=== PATIENT | male | born 2000 | race Caucasian/White ===

== ENCOUNTER 2020-05-22 09:40 | Outpatient (CLI) | payer OTHER, SELFPAY ==
--- NOTE | ~2020-05-22 | US_ITS ---
US abdomen complete EXAMINATION: US Abdomen Complete INDICATION: Abdomen pain PROCEDURE: Realtime High Resolution abdomen ultrasound. COMPARISON: No prior studies for comparison FINDINGS: Gallbladder within normal limits. No gallstones, pericholecystic fluid, gallbladder wall t hickening or biliary dilatation. Common bile duct measures 3.5 mm. Liver echotexture within normal limits without focal mass. Pancreas within normal limits. Pancreati c tail is obscured by bowel gas. Spleen is unremarkeable. Renal echotexture is within normal limits bilaterally without hydronephrosis, contour deforming mass or renal stone. Right kidney measures 10.7 cm. Left kidney measures 12 cm. Visualized aspects of the aorta and IVC are within normal limits. Portal vein is patent. No sonograph ic Valdivia's sign indicated by the technologist. IMPRESSION: 1: Normal abdominal ultrasound. Reviewed, dictated and finalized at location A.
[2020-05-22 09:56] LABS: Basophils Percent Auto 0.7 % (0.2-1.2); Eosinophils Absolute Auto 0.1 K/mm3 (0-0.3); Eosinophils Percent Auto 3.2 % (0-4.4); Hemoglobin 14.6 g/dL (14.0-18.0); Immature Granulocyte Absolute 0.01 K/mm3 (0.00-0.031); Immature Granulocyte Percent A 0.2 % (0-0.5); Lymphocytes Absolute Auto 1.49 K/mm3 (0.9-3.2); Lymphocytes Percent Auto 36.3 % (18.3-44.2); Mean Corpuscular Volume 88.3 fl (80-100); Mean Platelet Volume 8.7 fl (7.4-10.4); Monocytes Absolute Auto 0.4 K/mm3 (0.1-0.6); Monocytes Percent Auto 10.7 % (2.6-8.5); Neutrophils Percent Auto 48.9 % (45.5-73.1); Platelet Count Result 233 k/mm3 (150-375); Red Blood Count 4.87 M/mm3 (4.6-6.20); Red Cell Distribution Width 11.9 % (11.5-14.5); White Blood Count 4.1 K/mm3 (4.5-10.0)
[2020-05-22 10:13] LABS: Alanine Aminotransferase 17 U/L (4-50); Albumin Level 4.5 g/dL (3.7-5.6); Alkaline Phosphatase 47 U/L (58-237); Anion Gap 4 mmol/L (8-16); Aspartate Amino Transferase 21 U/L (17-59); Bilirubin,Total 0.8 mg/dL (0.2-1.3); Blood Urea Nitrogen 10 mg/dL (8-21); Calcium 9.8 mg/dL (8.9-10.7); Carbon Dioxide 32 mmol/L (22-30); Chloride 104 mmol/L (98-107); Cholesterol 116 mg/dL (0-200); Estimated Glomerular Filt Rate > 60; Glucose 87 mg/dL (75-110); HDL Direct 48 mg/dL; Sodium 140 mmol/L (134-143); Triglycerides 105 mg/dL (<150)
[2020-05-22 10:24] LABS: LDL Cholesterol Direct 54 mg/dL
[2020-05-22 10:41] LABS: Free T4 Free Thyroxine 1.25 ng/mL (0.78-2.19)
[2020-05-22 10:43] LABS: Thyroid Stimulating Hormone 0.049 uIU/mL (0.465-4.680)
[2020-05-25 05:54] LABS: Triiodothyronine T3 Free 3.6 pg/mL (3.0-4.7)
[2020-05-27 08:27] LABS: Gliadin AB, IgG 5 Units (<20); Reticulin IgA Negative (Negative); TTG IGA AB 1 U/mL (<4)
== END 2020-05-22 09:41 | disposition home or self-care (01) ==
PROVIDERS: PCP Internal Medicine; Visit Provider Nurse Practitioner
DX: Z13.220 Encounter for screening for lipoid disorders (principal); R10.9 Unspecified abdominal pain; E07.9 Disorder of thyroid, unspecified; Z51.81 Encounter for therapeutic drug level monitoring; Z79.899 Other long term (current) drug therapy
CPT/HCPCS: 36415; 76700; 80053; 80061; 83516; 84439; 84443; 84481; 85025; 86255

== ENCOUNTER 2021-12-02 08:05 | Outpatient (CLI) | payer OTHER, SELFPAY ==
[2021-12-02 19:11] LABS: Hematocrit 40.7 % (42.0-52.0); Hemoglobin 13.6 g/dL (14.0-18.0); Mean Corpuscular HGB Conc 33.4 g/dl (32-36); Mean Corpuscular Hemoglobin 30.8 pg (26-34); Mean Corpuscular Volume 92.3 fl (80-100); Mean Platelet Volume 9.4 fl (7.4-10.4); Platelet Count Result 237 k/mm3 (150-375); Red Blood Count 4.41 M/mm3 (4.6-6.20); Red Cell Distribution Width 12.4 % (11.5-14.5); White Blood Count 3.5 K/mm3 (4.5-10.0)
[2021-12-02 19:26] LABS: Alanine Aminotransferase 20 U/L (6-50); Albumin Level 4.7 g/dL (3.5-5.1); Alkaline Phosphatase 39 U/L (38-126); Anion Gap 11 mmol/L (8-16); Aspartate Amino Transferase 37 U/L (17-59); Bilirubin,Total 0.8 mg/dL (0.2-1.3); Blood Urea Nitrogen 16 mg/dL (9-20); Calcium 9.5 mg/dL (8.4-10.2); Carbon Dioxide 29 mmol/L (22-30); Chloride 102 mmol/L (98-107); Estimated Glomerular Filt Rate > 60; Glucose 71 mg/dL (65-110); Potassium 4.1 mmol/L (3.4-5.0); Sodium 142 mmol/L (137-145)
[2021-12-02 22:13] LABS: Thyroid Stimulating Hormone 0.476 uIU/mL (0.465-4.680)
== END 2021-12-02 08:06 | disposition home or self-care (01) ==
LOC: ANHGOSHLAB 08:09
PROVIDERS: PCP Internal Medicine; Visit Provider Internal Medicine
DX: D72.819 Decreased white blood cell count, unspecified (principal); E03.9 Hypothyroidism, unspecified; Z13.228 Encounter for screening for other metabolic disorders
CPT/HCPCS: 36415; 80053; 84443; 85027

== ENCOUNTER 2021-12-30 08:36 | Outpatient (CLI) | payer OTHER, SELFPAY ==
[2021-12-30 18:43] LABS: Basophils Percent Auto 0.8 % (0.2-1.2); Eosinophils Absolute Auto 0.1 K/mm3 (0-0.3); Eosinophils Percent Auto 1.3 % (0-4.4); Hematocrit 45.3 % (42.0-52.0); Hemoglobin 14.9 g/dL (14.0-18.0); Immature Granulocyte Absolute 0.01 K/mm3 (0.00-0.031); Immature Granulocyte Percent A 0.3 % (0-0.5); Lymphocytes Absolute Auto 1.66 K/mm3 (0.9-3.2); Lymphocytes Percent Auto 43.2 % (18.3-44.2); Mean Corpuscular HGB Conc 32.9 g/dl (32-36); Mean Corpuscular Hemoglobin 30.7 pg (26-34); Mean Corpuscular Volume 93.4 fl (80-100); Mean Platelet Volume 9.3 fl (7.4-10.4); Monocytes Absolute Auto 0.4 K/mm3 (0.1-0.6); Monocytes Percent Auto 9.1 % (2.6-8.5); Neutrophils Absolute Auto 1.7 K/mm3 (1.3-6.7); Neutrophils Percent Auto 45.3 % (45.5-73.1); Platelet Count Result 283 k/mm3 (150-375); Red Blood Count 4.85 M/mm3 (4.6-6.20); Red Cell Distribution Width 12.8 % (11.5-14.5); White Blood Count 3.8 K/mm3 (4.5-10.0)
== END 2021-12-30 08:37 | disposition home or self-care (01) ==
PROVIDERS: PCP Internal Medicine; Visit Provider Internal Medicine
DX: E03.9 Hypothyroidism, unspecified (principal); D72.819 Decreased white blood cell count, unspecified; D64.9 Anemia, unspecified
CPT/HCPCS: 36415; 82607; 82728; 82746; 84439; 84443; 85025

== ENCOUNTER 2022-06-10 10:07 | Emergency (ER) | payer OTHER, SELFPAY ==
[2022-06-10 10:18] VITALS: BP 128/64; PULSE 82; RESP 16; TEMP 37; O2SAT 100
--- NOTE | 2022-06-10 10:22 | ED.URI ---
HPI - URI/Sore Throat General Chief Complaint: Upper Respiratory Infection Stated Complaint: HEADACHE/SINUS CONGESITON/DIZZINESS/EYE REDNESS Time Seen by Provider: 06/10/22 10:22 Source: patient and RN notes reviewed History of Present Illness HPI Narrative: Patient is a 21-year-old male who presents to urgent care with complaints of head congestion, headache, intermittent dizziness and eye redness. Patient states he is also having pain in the left ear. States that it started on and he has been taking Mucinex DM and NyQuil. Patient states that his sister's boyfriend, who is a physician, called him a Z-Francisco Javier yesterday and which she has not started. 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 Denies any fevers. No other acute complaints. No acute distress noted. Patient aware of the plan of care. Some parts of this dictation were generated by voice recognition software and may contain typographical and/or grammatical inaccuracies. Related Data Home Medications Medication Instructions Recorded Confirmed turmeric 400 mg capsule 400 mg PO DIRECTED 05/16/21 06/10/22 Allergies Allergy/AdvReac Type Severity Reaction Status Date / Time amoxicillin Allergy Mild Rash Verified 06/10/22 10:11 Penicillins Allergy Unknown Rash Verified 06/10/22 10:11 Review of Systems Review of Systems: CONSTITUTIONAL: Denies fever, chills, or sweats. EYES: Denies visual changes, redness, or discharge. ENT: Reports of nasal congestion, sinus pressure, postnasal drainage and rhinorrhea CARDIOVASCULAR: Denies chest pain, palpitations, or edema. RESPIRATORY: Denies cough or dyspnea. GASTROINTESTINAL: Denies abdominal pain, nausea, vomiting, or diarrhea. GENITOURINARY: Denies dysuria or hematuria. SKIN: Denies rash or itching. MUSCULOSKELETAL: Denies back pain, joint pain, or myalgia. NEUROLOGIC: Reports of headache and Reports of intermittent dizzy All other systems reviewed are negative, except as documented in HPI. [facility] Past Medical History Medical History (Updated 06/10/22 @ 10:38 by COOKIE Sanchez) Generalized anxiety disorder Spondylolisthesis at L5-S1 level Thyroid disorder Family History Family History Mother Breast cancer Father Depression Anxiety Sibling Anxiety Grandparent Heart disease Other Family history of malignant neoplasm Hypertension Social History Social History Smoking status: Never smoker Alcohol intake: never Substance use: current Substance use type: marijuana Lack of Transportation: No Lack of Food: Never True Current Housing: I Have Housing Concerned About Future Housing: No Difficulty Paying Gas/Electric Bills: No Difficulty Paying for Meds: No Currently Unemployed: No Education: High School Diploma/GED Difficulty w/ Childcare or Family Care: No Comments At the time of my signature, I reviewed and agree with the nursing past medical, surgical, social, and family history. There is no relevant family history pertinent to the patient complaint. Exam Narrative: GENERAL: This is a well-nourished, well-developed patient, in no apparent distress. HEAD: normocephalic, atraumatic. Reported frontal sinus tenderness EYES: PERRL. Sclera clear/white. Mild injected bilateral conjunctivae with clear drainage. Vision is grossly intact. EARS: External ears normal, auditory canals clear and without drainage, TMs normal without perforation. Hearing grossly intact. NOSE: External nose normal with no obvious nasal discharge, moderate bilateral erythema to nasal tuberosity use with clear yellow rhinorrhea THROAT: Mucous membranes moist, posterior pharynx clear. Moderate postnasal drainage NECK: Neck supple, CARDIOVASCULAR: Regular rate and rhythm RESPIRATORY: Jacky
== END 2022-06-10 10:40 | disposition home or self-care (01) ==
PROVIDERS: Emergency Provider Nurse Practitioner Family; PCP Internal Medicine
DX: J32.9 Chronic sinusitis, unspecified (principal); F12.90 Cannabis use, unspecified, uncomplicated; M43.17 Spondylolisthesis, lumbosacral region
CPT/HCPCS: 99213; G0463

== ENCOUNTER 2022-12-04 08:08 | Outpatient (CLI) | payer OTHER, SELFPAY ==
[2022-12-04 10:26] LABS: Anion Gap 6 mmol/L (8-16); Blood Urea Nitrogen 13 mg/dL (9-20); Calcium 9.5 mg/dL (8.4-10.2); Carbon Dioxide 32 mmol/L (22-30); Chloride 103 mmol/L (98-107); Estimated Glomerular Filt Rate > 60; Glucose 85 mg/dL (65-110); Potassium 4.1 mmol/L (3.4-5.0); Sodium 141 mmol/L (137-145)
[2022-12-08 13:09] LABS: HIV 1 2 Ag Ab 4th Gen w Rflxs Nonreactive (Nonreactive)
== END 2022-12-04 08:09 | disposition home or self-care (01) ==
LOC: ANHGOSHLAB 08:10
PROVIDERS: PCP Internal Medicine; Visit Provider Internal Medicine
DX: Z51.81 Encounter for therapeutic drug level monitoring (principal); D72.819 Decreased white blood cell count, unspecified; D64.9 Anemia, unspecified; F41.1 Generalized anxiety disorder; E03.9 Hypothyroidism, unspecified
CPT/HCPCS: 36415; 80048; 84443; 87389

== ENCOUNTER 2023-05-07 11:08 | Outpatient (CLI) | payer OTHER, SELFPAY ==
--- NOTE | ~2023-05-07 | CT_ITS ---
CT of the Abdomen and Pelvis: Indication: Abdominal pain Technique: 2.5 mm axial scans were obtained through the abdomen and pelvis following intravenous adm inistration of 100 cc of Omnipaque 350. Dose reduction technique was used on this scan by utilizing a utomated exposure control and iterative reconstruction technique. The dose-length product (DLP) was 2 25.40 mGy-cm. Findings: Scans through the lung bases are unremarkable. The liver, spleen, pancreas, gallbladder, adrenals and kidneys are within normal limits. No evidence of aortic aneurysm. No lymphadenopathy. No bowel obstruction or bowel wall thickening. There is no evidence to suggest acute appendicitis. Images through the pelvis were performed. Urinary bladder unremarkable. No pelvic mass seen. No ascit es. There are bilateral L5 pars interarticularis defects, without subluxation. Impression: No acute abnormalities seen. Chronic bilateral L5 pars interarticularis defects. Reviewed, dictated and finalized at [facility]. P SORTER Impression: No acute abnormalities seen. Chronic bilateral L5 pars interarticularis defects.
== END 2023-05-07 11:09 | disposition home or self-care (01) ==
LOC: ANHIMG 11:08
PROVIDERS: PCP Internal Medicine; Visit Provider Nurse Practitioner
DX: R10.9 Unspecified abdominal pain (principal)
CPT/HCPCS: 74177; Q9967

== ENCOUNTER 2024-05-11 10:10 | Outpatient (CLI) | payer OTHER, SELFPAY ==
--- OUTSIDE RECORDS SUMMARY | 2024-05-11 11:15 | XMS_ITS | Encounter Summary ---
Author Organization [facility] Address [address] [place] [address] Care Team Providers Care Drapery Examiner Name Role Phone Janie Ward MD Primary Care Provider [phone] Encounter Details Date Type Department Care Team (Late st Contact Info) Description 01/27/2017 Telephone [facility] Pediatrics - Endocrinology [address] [place] [id number] Carlton Webster MD [address] [place] [id number] Social History Tobacco Use Types Packs/Day Years Used Date Smoking Tobacco: Never Alcohol Use Standard Drinks/Week Comments No 0 (1 standard drink = 0.6 oz pur e alcohol) Sex and Gender Information Value Date Recorded Sex Assigned at Not on file Gender Identity Not on file Sexual Orientation Not on file documented as of this encounter Plan of Treatment Not on file documented as of this encounter Visit Diagnoses Not on filedocumented in this encounter Care Teams Drapery Examiner Relationship Specialty Start Date End Date Janie Ward MD [address] [place] [address] PCP - General 05/03/10 documented as of this encounter
--- OUTSIDE RECORDS SUMMARY | 2024-05-11 11:15 | XMS_ITS | Referral Summary ---
Author Organization [facility] Address [address] [place] [id number] Care Team Providers Care Paralegal Legal Secretary Name Role Phone Philip Acevedo DO Primary Care Provider [phone] Allergies Active Allergy Reactions Criticality Noted Date Comments Amoxicillin Unknown High 05/03/2010 Pinpoint rash w/ amox A few years ago Penicillins Rash Medium 02/27/2014 Medications ALREX 0.2 % drops,suspensionInd ications:Allergic Conjunctivitis 11/26/2017 Acti ve levothyroxine (SYNTHROID, LEVOTHROID) 137 mcg tablet Take 137 mcg by mouth. 08/11/2017 Active methylPREDNISolone (MEDROL DOSEPACK) 4 mg Dosepack 05/24/2020 Active levothyroxine (SYNTHROID) 125 mcg tablet 03/26/2021 Active Active Problems Problem Noted Date Diagnosed Date Fatigue 02/17/2017 Overview (03/24/2019): Overview: Daily fatigue x 3 months; no exacerbating or alleviating factors; no missed school; no weight loss, unexplained fever, rash, vomiting, diarrhea, paleness, skin bruising, sore throat, or adenopathy Last Assessment & Plan: Fatigue x 3 months with abdominal discomfort with palpation; cause uncertain; 1. Screening serum biochemistries: fasting morning cortisol, comprehensive metabolic panel, complete blood count, ESR, total IgA, & tissue transglutaminase antibody (IgA) 2. Follow up with primary care provider. History of knee surgery 01/28/2016 Rupture of anterior cruciate ligament of knee Acquired autoimmune hypothyroidism 02/27/2014 Overview (03/24/2019): Apr 14, 2012 ([facility]): Na 143 mmol/L, K 4.3 mmol/L, Cl 106 mmol/L, CO2 26 mmol/L, BUN 13 mg/dL, creatinine 0.85 mg/dL, glucose 83 mg/dL, calcium 9.9 mg/dL, alkaline phosphatase 140 U/L, SGOT (AST) 27 U/L, SGPT (ALT) 21 U/L, total protein 7.1 g/dL, albumin 5.2 g/dL, total bilirubin 0.7 mg/dL; amylase 41 U/L (21-101), lipase 9 U/L (7-60); TSH > 150 uIU/L (0.50-4.30), total T4 1.9 ug/dL (4.5-11.0), T3 uptake 21% (22-35), free T4 index 0.4 (1.40-3.80); WBC 4.8 K, hemoglobin 12.8 g/dL, hematocrit 38.3 %, ples 279 K; PIERRE IFA screen with reflex to titer and pattern, IFA PIERRE screen, IFA negative (negative) Apr 19, 2012 ([facility]): TSH > 150 uIU/L (0.50-4.30), total T4 2.2 ug/dL (4.5- 11.0), T3 uptake 20% (22-35), free T4 index 0.4 (1.40-3.80), thyroid stimulating immunoglobulin 215% (< 140), thyroid peroxidase antibody 821 IU/mL (< 35), total IgA 45 mg/dL (64-246) Jan 20, 2014 ([facility]): TSH 8.97 uIU/L (0.5-4.30), free T4 1.5 ng/dL (0.90-1.40) Feb 06, 2014 ([facility]): TSH 2.06 uIU/L (0.50-4.30), free T4 1.3 ng/dL (0.90-1.40) Feb, 2018 - briefly discontinued L-thyroxine treatment (following cessation of linear growth and completion of pubertal development); however, Matt felt very poorly within a few days of stopping treatment and subsequently resumed L-thyroxine with return to prior state of ambient well being. No desire to stop L-thyroxine in the near future Last Assessment & Plan: Acquired autoimmune hypothyroidism; slightly undertreated. Increase L-thyroxine to 0.15 mg daily and repeat serum TSH and CMP in 8 weeks. 1. Orders Placed This Encounter TSH COMPREHENSIVE METABOLIC PANEL levothyroxine (SYNTHROID) 150 MCG tablet Sig: Take 1 tablet by mouth once daily Dispense: 90 tablet Refill: 3 2. Counseled medication taking/adherence, keeping appointments for interval blood specimen collection and return visits to optimally manage his hypothyroidism and risks/surveillance/igns/symptoms of other autoimmune diseases. 3. Return visit in one year. Acquired autoimmune hypothyroidism 02/27/2014 Overview (05/28/2020): Apr 14, 2012 ([facility]): Na 143 mmol/L, K 4.3 mmol/L, Cl 106 mmol/L, CO2 26 mmol/L, BUN 13 mg/dL, creatinine 0.85 mg/dL, glucose 83 mg/dL, calcium 9.9 mg/dL, alkaline phosphatase 140 U/L, SGOT (AST) 27 U/L, SGPT (ALT) 21 U/L, total protein 7.1 g/dL, albumin 5.2 g/dL, total bilirubin 0.7 mg/dL; amylase 41 U/L (21-101), lipase 9 U/L (7-60); TSH > 150 uIU/L (0.50-4.30), total T4 1.9 ug/dL (4.5-11.0), T3 uptake 21% (22-35), free T4 index 0.4 (1.40-3.80); WBC 4.8 K, hemoglobin 12.8 g/dL, hematocrit 38.3 %, ples 279 K; PIERRE IFA screen with reflex to titer and pattern, IFA PIERRE screen, IFA negative (negative) Apr 19, 2012 ([facility]): TSH > 150 uIU/L (0.50-4.30), total T4 2.2 ug/dL (4.5- 11.0), T3 uptake 20% (22-35), free T4 index 0.4 (1.40-3.80), thyroid stimulating immunoglobulin 215% (< 140), thyroid peroxidase antibody 821 IU/mL (< 35), total IgA 45 mg/dL (64-246) Jan 20, 2014 ([facility]): TSH 8.97 uIU/L (0.5-4.30), free T4 1.5 ng/dL (0.90-1.40) Feb 06, 2014 ([facility]): TSH 2.06 uIU/L (0.50-4.30), free T4 1.3 ng/dL (0.90-1.40) Feb, 2018 - briefly discontinued L-thyroxine treatment (following cessation of linear growth and completion of pubertal development); however, Matt felt very poorly within a few days of stopping treatment and subsequently resumed L-thyroxine with return to prior state of ambient well being. 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 Thyroid activity decreased 05/19/2012 Immunizations Immunization Administration Dates Next Due DTaP, Unspecified 11/19/2005, 2,02/11/2001,2000 ,2000 Hep A, Unspecified 05/02/2009,10/12/2008 Hep B / HiB 02/17/2002,2000,2000 MMR 11/19/2005,09/10/2001 Meningococcal B, OMV (Bexsero) 09/29/2017,2017 Meningococcal Conjugate (Menveo) 08/17/2017 Meningococcal MCV4P (Menactra) 05/12/2012 Pneumococcal Conjugate 7-Valent 02/17/2002,05/12,02/11/2001,2000 Polio, Unspecified 11/19/2005,02/11/2001, 001,2000 Tdap 05/02/2011 Varicella 10/12/2008,02/17/2002 Social History Tobacco Use Types Packs/Day Years Used Date Smoking Tobacco: Never Smokeless Tobacco: Never Personal Safety Answer Date Recorded Getting School Help Needed Not on file 05/03 Sex and Gender Information Value Date Recorded Sex Assigned at Not on file Legal Sex Male 2:50 AM [employer]OR [employer] Gender Identity Not on file Sexual Orientation Not on file Last Filed Vital Signs Vital Sign Reading Time Taken Comments Blood Pressure 98/54 08/30/2013 10:59 AM CDT Pulse 76 08/30/2013 10:59 AM CDT Temperature - - Respiratory Rate - - Oxygen Saturation - - Inhaled Oxygen Concentration - - Weight 66 kg (145 lb 8.1 oz) 04/14/2019 1:03 PM [employer] Height 177.1 cm (5' 9.72 ) 04/14/2019 1:03 PM CS T Body Mass Index 21.04 04/14/2019 1:03 PM [employer] Plan of Treatment Not on file Insurance [facility] CLAIMS [facility] CLAIMS [facility] CLAIMS Care Teams Paralegal Legal Secretary Relationship Specialty Start Date End Date Philip Acevedo DO PCP - General Internal Medicine 06/07/20
--- OUTSIDE RECORDS SUMMARY | 2024-05-11 11:15 | XMS_ITS | Clinical Summary ---
Author Organization [email or web address] Address [address] [place] [address] Care Team Providers Care Dress Marker Name Role Phone Janie Ward MD Primary Care Provider [phone] Source Comments [email or web address],non-owned Affiliates and Associated Physician Practices is amultiple site organization consisting of ambulatory clinics and hospital sitesin [place], [place], [place] and [place]. This disclosure is being madepursuant to the Care Everywhere program and may not contain all information available regarding this patient. Last updated 17.[email or web address] Allergies Active Allergy Reactions Criticality Noted Date Comments Amoxicillin High 05/03/2010 Pinpoint rash w/ amox A few years ago Penicillins Rash Low 02/27/2014 Medications * Be aware that medications may not be up to date on this document. Alwaysverify current medications with the patient. Medication Sig Dispensed Refills Start Date End Date Status levothyroxine (SYNTHROID) 150 MCG tabletIndications:Acqui red hypothyroidism Take 1 tablet by mouth once daily 90 tablet 3 09/19/2019 Active Active Problems Problem Noted Date Diagnosed Date Fatigue 02/17/2017 Overview (02/17/2017): Daily fatigue x 3 months; no exacerbating or alleviating factors; no missed school; no weight loss, unexplained fever, rash, vomiting, diarrhea, paleness, skin bruising, sore throat, or adenopathy Assessment & Plan (02/17/2017 1:59 PM FENDER FINISHER): Fatigue x 3 months with abdominal discomfort with palpation; cause uncertain; 1. Screening serum biochemistries: fasting morning cortisol, comprehensive metabolic panel, complete blood count, ESR, total IgA, & tissue transglutaminase antibody (IgA) 2. Follow up with primary care provider. Acquired autoimmune hypothyroidism 02/27/2014 Overview (09/13/2018): Apr 14, 2012 ([facility]): Na 143 mmol/L, [...] to stop L-thyroxine in the near future Assessment & Plan (09/19/2019 1:23 PM CDT): 1) no changes to synthroid 2) follow up in 1 year 3) call as needed for concerns Assessment & Plan (09/13/2018 6:20 PM CDT): Acquired autoimmune hypothyroidism; slightly undertreated. Increase L-thyroxine [...] diseases. 3. Return visit in one year. Assessment & Plan (02/08/2018 5:16 PM FENDER FINISHER): Well managed; ceased linear growth/completed pubertal maturation 1. Discontinue daily L-thyroxine to assess need for long-term treatment. 2. Repeat serum TSH in about four weeks, sooner if he becomes symptomatic with weakness, fatigue 3. Return visit in six months. Assessment & Plan (08/17/2017 3:18 PM CDT): Euthyroid; no other clinical signs/symptoms of autoimmune diseases. 1. L-thyroxine 0.137 mg daily 2. Return appointment in six months (discussed discontinuing L-thyroxine treatment at that time to determined continued need for treatment). Assessment & Plan (02/17/2017 1:56 PM FENDER FINISHER): Acquired autoimmune hypothyroidism; perhaps a bit overtreated. 1. L-thyroxine (0.137 mg tablet) 1 tablet daily, except 0.5 tablet on Sat & Sun. 2. Return appointment in six months. Assessment & Plan (09/30/2016 9:51 AM CDT): Slightly undertreated. 1. L-thyroxine 0.137 mg daily 2. Return appointment in six months. Assessment & Plan (04/15/2016 7:24 AM FENDER FINISHER): Euthyroid. 1. L-thyroxine 0.125 mg daily. 2. Return appointment in six months. Assessment & Plan (10/02/2015 10:01 AM CDT): Euthyroid. 1. L-thyroxine 0.125 mg daily. 2. Return appointment in six months. 3. I reviewed my impression and recommendations with father at the time of the office visit and he was in agreement. Assessment & Plan (02/26/2015 12:48 PM FENDER FINISHER): Under-treated secondary to missed medication doses. 1. L-thyroxine 0.1 mg daily. 2. Obtain serum TSH and basic metabolic panel in two weeks after return from vacation. 3. Return appointment in six months. Assessment & Plan (09/05/2014 3:38 PM CDT): Euthyroid. 1. L-thyroxine 0.1 mg daily. 2. Return appointment in six months. Assessment & Plan (02/28/2014 1:28 PM FENDER FINISHER): Acquired primary hypothyroidism; well-treated. 1. Orders Placed This Encounter Procedures BASIC METABOLIC PANEL (CALCIUM TOTAL) T4 TOTAL TSH 2. Obtain serum biochemistries at [employer] before next office appointment and fax results to Dr. Carlton Webster at [phone] (prescription given). 3. Outpatient Prescriptions Marked as Taking for the 02/27/14 encounter (Hospital Encounter) with Carlton Webster MD Medication Sig levothyroxine (SYNTHROID) 100 MCG tablet Take 1 Tab by mouth daily before breakfast. 4. I will contact Matt Ruiz's father by telephone (number: [phone] or [phone]) with the test results after I have received them and make the necessary medication dose adjustments or any additional recommendations. 5. See website: [email or web address].org for patient information handouts - Hypothyroidism 6. Return appointment in 6 month(s). 7. I reviewed my provisional impressions and recommendations with father and he was in agreement. Family History Medical History Relation Name Comments Allergies Father Hypertension Father Breast Cancer at or under age 50 Mother Thyroid Disease Other Mother's eloisa e of family Diabetes Paternal Uncle Bronchitis Neg Hx Cystic Fibrosis Neg Hx Emphysema Neg Hx Immunodeficiency Neg Hx Tuberculosis Neg Hx Relation Name Status Comments Father Mother Other Paternal Uncle Social History Tobacco Use Types Packs/Day Years Used Date Smoking Tobacco: Never Smokeless Tobacco: Never Alcohol Use Standard Drinks/Week Comments No 0 (1 standard drink = 0.6 oz pur e alcohol) Sex and Gender Information Value Date Recorded Sex Assigned at Not on file Gender Identity Not on file Sexual Orientation Not on file Last Filed Vital Signs Vital Sign Reading Time Taken Comments Blood Pressure 110/72 09/19/2019 8:56 AM CDT Pulse 72 09/19/2019 8:56 AM CDT Temperature - - Respiratory Rate 16 09/19/2019 8:56 AM CDT Oxygen Saturation 99% 05/03/2010 9:38 AM FENDER FINISHER Inhaled Oxygen Concentration - - Weight 65.6 kg (144 lb 10 oz) 09/19/2019 8:56 AM CDT Height 177.6 cm (5' 9.92 ) 09/19/2019 8:56 AM CD T Body Mass Index 20.8 09/19/2019 8:56 AM CDT Plan of Treatment Health Maintenance Due Date Last Done Comments HIV SCREENING 08/05/2015 HPV VACCINE (1 - Male 3-dose series) 08/05/2015 MENINGOCOCCAL (Group B) VACC INE (1 of 2 - Standard) 2016 HEPATITIS C SCREENING 07/31/2018 DTAP/TDAP/TD VACCINES (1 - Tdap) 08/05/2019 HEPATITIS B VACCINE (1 of 3 - 19+ 3-dose series) 08/05/2019 COVID-19 VACCINE (1 - 2023-2 5 season) 2023 INFLUENZA VACCINE (#1) 2023 DEPRESSION SCREENING 03/09/2024 ZOSTER VACCINE (1 of 2) 2050 HIB VACCINE Aged Out No longer eligi ble based on patient's age to complete this topic MENINGOCOCCAL VACCINE Aged Out No raza annemarie eligible based on patient's age to complete this topic PNEUMOCOCCAL VACCINE Aged Out No long er eligible based on patient's age to complete this topic Care Teams Dress Marker Relationship Specialty Start Date End Date Janie Ward MD [address] [place], [place] [id number] PCP - General 05/03/10
--- OUTSIDE RECORDS SUMMARY | 2024-05-11 11:15 | XMS_ITS | Patient Health Summary ---
Author Organization [facility] Address [address] [place] [address] Care Team Providers Care Blanket Cutting Machine Operator Name Role Phone Janie Ward MD Primary Care Provider [phone] Note from [facility],non-owned Affiliates and Associated Physician Practices is amultiple site organization consisting of ambulatory clinics and hospital sitesin [place], [place], [place] and [place]. This disclosure is being madepursuant to the Care Everywhere program and may not contain all information available regarding this patient. Last updated 17.[facility] Allergies * Amoxicillin(Pinpoint rash w/ amox A few years ago) -High Criticality * Penicillins(Rash) -Low Criticality Medications * Be aware that medications may not be up to date on this document. Alwaysverify current medications with the patient. 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 Social History Tobacco Use Types Packs/Day Years [...] CDT Oxygen Saturation 99% 05/03/2010 9:38 AM PROFESSOR OF CHEMISTRY Inhaled Oxygen Concentration - - Weight 65.6 kg (144 lb 10 oz) 09/19/2019 8:56 AM CDT Height 177.6 cm (5' 9.92 ) 09/19/2019 8:56 AM CD T Body Mass Index 20.8 09/19/2019 8:56 AM CDT Procedures * TSH(Performed 09/13/2019) * COMPREHENSIVE METABOLIC PANEL(Performed 09/13/2019) * TSH(Performed 08/05/2018) * TSH(Performed 02/02/2018) * TSH(Performed 08/01/2017) Performed for Acquired autoimmune hypothyroidism * TSH(Performed 03/24/2017) * TSH(Performed 02/11/2017) Performed for Acquired autoimmune hypothyroidism * COMPREHENSIVE METABOLIC PANEL(Performed 02/11/2017) Performed for Acquired autoimmune hypothyroidism * TISSUE TRANSGLUTAMINASE AB IGA(Performed 02/11/2017) Performed for Acquired autoimmune hypothyroidism * ERYTHROCYTE SEDIMENTATION RATE(Performed 02/11/2017) Performed for Acquired autoimmune hypothyroidism * CBC W AUTO DIFFERENTIAL(Performed 02/11/2017) Performed for Acquired autoimmune hypothyroidism * IGA BLOOD(Performed 02/11/2017) Performed for Acquired autoimmune hypothyroidism * CORTISOL BLOOD(Performed 02/11/2017) Performed for Acquired autoimmune hypothyroidism * TSH(Performed 02/05/2017) * BASIC METABOLIC PANEL (CALCIUM TOTAL)(Performed 02/05/2017) * TSH(Performed 09/29/2016) Performed for Acquired autoimmune hypothyroidism * BASIC METABOLIC PANEL (CALCIUM TOTAL)(Performed 09/29/2016) Performed for Acquired autoimmune hypothyroidism * TSH(Performed 04/04/2016) * TSH(Performed 09/21/2015) * TSH(Performed 08/02/2015) * BASIC METABOLIC PANEL (CALCIUM TOTAL)(Performed 08/02/2015) * TSH(Performed 02/08/2015) * TSH(Performed 08/25/2014) * T4 TOTAL(Performed 08/25/2014) * BASIC METABOLIC PANEL (CALCIUM TOTAL)(Performed 08/25/2014) * LAB RESULTS ORDER(Performed 03/14/2014) Results * (ABNORMAL) COMPREHENSIVE METABOLIC PANEL (09/13/2019 3:21 PM CDT) Only the most recent of2 resultswithin the time period is included. Glucose 91 65 - 139 mg/dL [facility] Comment: Non-fasting reference interval BUN 18 7 - 20 mg/dL [facility] Creatinine 0.98 0.60 - 1.26 mg/dL [facility] eGFR by MDRD 111 > OR = 60 mL/min/1. 73m2 [facility] eGFR by MDRD 129 > OR = 60 mL/min/1. 73m2 [facility] BUN/Creatinine Ratio NOT APPLICABLE 6 - 22 (calc) [facility] Sodium 140 135 - 146 mmol/L [facility] Potassium 4.0 3.8 - 5.1 mmol/L [facility] Chloride 107 98 - 110 mmol/L [facility] CO2 26 20 - 32 mmol/L [facility] Calcium 9.9 8.9 - 10.4 mg/dL [facility] Protein Total 6.8 6.3 - 8.2 g/dL [facility] Albumin 4.9 3.6 - 5.1 g/dL [facility] Globulin Total 1.9(L) 2.1 - 3.5 g/dL (calc) [facility] Albumin/Globuli n Ratio 2.6(H) 1.0 - 2.5 (calc) [facility] Bilirubin Total 0.8 0.2 - 1.1 mg/dL [facility] Alkaline Phosphatase 51 46 - 169 U/L [facility] AST 20 12 - 32 U/L [facility] ALT 18 8 - 46 U/L [facility] Comment: Test Performed at: [place] [address] GLEN PEPPER DO,MPH 09/13/2019 3:21 PM CDT 09/13/2019 3:23 PM CDT Carlton Webster MD LAB - CHEMISTRY [place]ET[place] [facility] [address] [place] [address] * TSH (09/13/2019 3:21 PM CDT) Only the most recent of13 resultswithin the time period is included. Pathologist [facility] TSH 1.99 0.50 - 4.30 mIU/L [facility] Comment: REPORT COMMENT: FASTING:NO AN UPDATE OR CORRECTION HAS BEEN MADE TO NAME Test Performed at: [place] [address] GLEN PEPPER DO,MPH 09/13/2019 3:21 PM CDT 09/13/2019 3:23 PM CDT Carlton Webster MD LAB - CHEMISTRY [place]ET[place] Performing Organization Address [facility] Co de Phone Number [address] [address] * TISSUE TRANSGLUTAMINASE AB IGA (02/11/2017 7:08 AM PROFESSOR OF CHEMISTRY) Pathologist [facility] TTG Antibody IgA 1 <4 U/mL [facility] Comment: Value Interpretation <4 U/mL: No Antibody Detected >or=4 U/mL: Antibody Detected Test Performed at: [facility]/[address] [address] MARA ADAME MD,PHD Blood BLOOD SPECIMEN / Unknown 02/11/2017 7:08 AM PROFESSOR OF CHEMISTRY 02/11/2017 7:08 AM PROFESSOR OF CHEMISTRY Carlton Webster MD LAB - SEROLOGY ORDER MONICA Performing Organization Address [facility] Co de Phone Number [address] [address] * SED RATE WESTERGREN AUTO (02/11/2017 7:08 AM PROFESSOR OF CHEMISTRY) [facility] Erythrocyte Sedimentation Rate Westergren 2 < OR = 15 mm/h [facility] Comment: Test Performed at: [address] [address] ARMANDO BANGURA MD Blood BLOOD SPECIMEN / Unknown 02/11/2017 7:08 AM PROFESSOR OF CHEMISTRY 02/11/2017 7:08 AM PROFESSOR OF CHEMISTRY Carlton Webster MD LAB - HEMATOLOGY ORD ERABLES Performing Organization Address [facility] Co de Phone Number [address] [address] * (ABNORMAL) CBC W AUTO DIFFERENTIAL (02/11/2017 7:08 AM PROFESSOR OF CHEMISTRY) [facility] White Blood Cell Count 4.1(L) 4.5 - 13.0 Thousand/ uL [facility] RBC 5.27 4.10 - 5.70 Million/u L [facility] Hemoglobin 15.1 12.0 - 16.9 g/dL [facility] Hematocrit 45.1 36.0 - 49.0 % [facility] MCV 85.6 78.0 - 98.0 fL [facility] MCH 28.7 25.0 - 35.0 pg [facility] MCHC 33.5 31.0 - 36.0 g/dL [facility] RDW 14.1 11.0 - 15.0 % [facility] Platelet Count 222 140 - 400 Thousand/ uL [facility] MPV 7.8 7.5 - 12.5 fL [facility] Neutrophil Absolute 1538(L) 1800 - 8000 cells/uL [facility] Lymphocytes Absolute 2050 1200 - 5200 cells/uL [facility] Absolute Monocytes 410 200 - 900 cells/uL [facility] Eosinophils Absolute 82 15 - 500 cells/uL [facility] Basophils Absolute 21 0 - 200 cells/uL [facility] Granulocytes % 37.5 % [facility] Lymphocytes % 50.0 % [facility] Monocytes % 10.0 % [facility] Eosinophils % 2.0 % [facility] Basophils % 0.5 % [facility] Comment: Test Performed at: [facility] [address] ARMANDO BANGURA MD Blood BLOOD SPECIMEN / Unknown 02/11/2017 7:08 AM PROFESSOR OF CHEMISTRY 02/11/2017 7:08 AM PROFESSOR OF CHEMISTRY Carlton Webster MD LAB - HEMATOLOGY GABRIELLA TERRY Performing Organization Address [facility] Co de Phone Number [address] [address] * IGA BLOOD (02/11/2017 7:08 AM PROFESSOR OF CHEMISTRY) [facility] IgA 83 81 - 463 mg/dL [facility] Comment: Test Performed at: [facility] [place] [address] [place] [address] GLEN PEPPER DO,MPH Blood BLOOD SPECIMEN / Unknown 02/11/2017 7:08 AM PROFESSOR OF CHEMISTRY 02/11/2017 7:08 AM PROFESSOR OF CHEMISTRY Carlton Webster MD LAB - CHEMISTRY [place]ET[place] Performing Organization Address [facility] Co de Phone Number [address] [address] * CORTISOL BLOOD (02/11/2017 7:08 AM PROFESSOR OF CHEMISTRY) [facility] Cortisol Total 15.3 mcg/dL [facility] Comment: Reference Range A.M.: 3.0-25.0 P.M.: 3.0-17.0 Test Performed at: [facility] [employer] [place] [address] GLEN PEPPER DO,MPH Blood BLOOD SPECIMEN / Unknown 02/11/2017 7:08 AM PROFESSOR OF CHEMISTRY 02/11/2017 7:08 AM PROFESSOR OF CHEMISTRY Carlton Webster MD LAB - CHEMISTRY [place] Performing Organization Address City/[facility]/ZIP Co de Phone Number [facility] [address] [place] [address] * (ABNORMAL) BASIC METABOLIC PANEL (CALCIUM TOTAL) (02/05/2017 2:45 PM PROFESSOR OF CHEMISTRY) Only the most recent of4 resultswithin the time period is included. [facility] Glucose 117(H) 65 - 99 mg/dL [facility] Comment: Fasting reference interval For someone without known diabetes, a glucose value between 100 and 125 mg/dL is consistent with prediabetes and should be confirmed with a follow-up test. BUN 15 7 - 20 mg/dL [facility] Creatinine 0.84 0.60 - 1.20 mg/dL [facility] Comment: Patient is <18 years old. Unable to calculate eGFR. BUN/Creatinine Ratio NOT APPLICABLE 6 - 22 (calc) [facility] Sodium 140 135 - 146 mmol/L [facility] Potassium 3.9 3.8 - 5.1 mmol/L [facility] Chloride 105 98 - 110 mmol/L [facility] CO2 28 20 - 31 mmol/L [facility] Calcium 9.8 8.9 - 10.4 mg/dL [facility] Comment: Test Performed at: [facility] [address] GLEN PEPPER DO,MPH 02/05/2017 2:45 PM PROFESSOR OF CHEMISTRY 02/05/2017 2:46 PM PROFESSOR OF CHEMISTRY Carlton Webster MD LAB - CHEMISTRY [place] Performing Organization Address City/[facility]/ZIP Co de Phone Number [facility] [address] [place] [address] * T4 TOTAL (08/25/2014 11:10 AM CDT) T4 Total 8.9 4.5 - 12.0 mcg/dL [facility] Comment: Test Performed at: [facility] [place] [address] [place] [address] GLEN PEPPER DO,MPH 08/25/2014 11:1 0 AM CDT 08/25/2014 11:10 AM CDT Carlton Webster MD LAB - CHEMISTRY [place] [place] Organization Address City/State/ZIP Co de Phone Number [place] [phone] [place] [address] * LAB RESULTS ORDER (03/14/2014 10:29 PM PROFESSOR OF CHEMISTRY) Narrative 03/14/2014 10:29 PM PROFESSOR OF CHEMISTRY Ordered by an unspecified provider. Scanned Document LAB - THERAPEUTIC DR CHASE MONITORING ORDERABLES Care Teams Blanket Cutting Machine Operator Relationship Specialty Start Date End Date Janie Ward MD [address] [place] [id number] PCP - General 05/03/10
--- OUTSIDE RECORDS SUMMARY | 2024-05-11 11:15 | XMS_ITS | Clinical Summary ---
Author Organization [facility] Address [address] [place] [id number] Care Team Providers Care Trim Mechanic Name Role Phone Philip Acevedo DO Primary Care Provider [phone] Allergies Active Allergy Reactions Criticality Noted Date [...] Unspecified 11/19/2005,02/11/2001, 001,2000 Tdap 05/02/2011 Varicella 10/12/2008,02/17/2002 Surgical History Surgery Date Site/Laterality Comments ARTHROSCOPIC REPAIR ACL 03/09/2016 - 03/08/2017 Family History Medical History Relation Name Comments Hypertension Father Family history of hypertension - (Added by TW Conv) Hypothyroidism Maternal Grandmother Famil y history of hypothyroidism - (Added by TW Conv) Breast cancer Mother Family history of malignant neoplasm of breast - (Added by TW Conv) Cancer Mother Family history of malignant neoplasm - (Added by TW Conv) Hypothyroidism Mother's Sister Family his tory of hypothyroidism - (Added by TW Conv) Breast cancer Other Family history of malignant neoplasm of breast - (Added by TW Conv) Relation Name Status Comments Father Alive Maternal Grandmother Mother Alive Mother's Sister Other Social History Tobacco Use Types Packs/Day Years Used Date Smoking Tobacco: Never Smokeless Tobacco: Never Personal Safety Answer Date Recorded Getting School Help Needed Not on file 05/03 Sex and Gender Information Value Date Recorded Sex Assigned at Not on file Legal Sex Male 2:50 AM 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 Gender Identity Not on file Sexual Orientation Not on file Obstetrics History Last Filed Vital Signs Vital Sign Reading Time Taken Comments Blood Pressure 98/54 08/30/2013 10:59 AM CDT Pulse 76 08/30/2013 10:59 AM CDT Temperature - - Respiratory Rate - - Oxygen Saturation - - Inhaled Oxygen Concentration - - Weight 66 kg (145 lb 8.1 oz) 04/14/2019 1:03 PM 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 Height 177.1 cm (5' 9.72 ) 04/14/2019 1:03 PM CS T Body Mass Index 21.04 04/14/2019 1:03 PM 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 Plan of Treatment [place] [id number] [facility] CLAIMS [facility] CLAIMS [facility] CLAIMS Care Teams Trim Mechanic Relationship Specialty Start Date End Date Philip Acevedo DO PCP - General Internal Medicine 06/07/20
--- OUTSIDE RECORDS SUMMARY | 2024-05-11 11:15 | XMS_ITS | Clinical Summary ---
Author Organization [facility] Address [address] Attn: Epic Prelude ADT [place] [address] Care Team Providers Care Electroslag Welding Machine Operator Name Role Phone Unavailable Primary Care Provider Unavailabl e Medications predniSONE (DELTASONE) 10 mg tablet Take 6 tablets by mouth on day 1, then decrease by 1 tablet daily until finished. (6, 5, 4, 3, 2, 1) 21 Tablet 2 12:49 PM CDT 08/20/19 22 Active DULoxetine (CYMBALTA) 30 mg Capsule, Delayed Release(E.C.) Take 1 Capsule (30 mg) by mouth daily. 7 Capsule 2 12:11 PM CDT 12/03/19 22 Active DULoxetine (CYMBALTA) 60 mg Capsule, Delayed Release(E.C.) Take 1 Capsule (60 mg) by mouth daily AFTER COMPLETING 30 MG DOSE (WEEK 2 AND THEREAFTER). 30 Capsule 6 2 12:11 PM CDT 12/03/19 22 Active fluticasone propionate (FLONASE) 50 mcg/spray [place], Suspension nasal inhaler ADMINISTER 2 SPRAYS IN EACH NOSTRIL ONCE DAILY. 16 Gram 3 12:23 PM CDT 06/11/19 23 Active azithromycin (ZITHROMAX) 250 mg tablet TAKE 2 TABLETS BY MOUTH ON DAY 1, THEN TAKE 1 TABLET BY MOUTH ON DAYS 2-5 6 Tablet 3 11:34 AM CDT 10/27/19 23 Active neomycin-polym yxin-dexAMETHa sone (MAXITROL) 3.5mg/mL-10,00 0 unit/mL-0.1 % suspension INSTILL 1 DROP INTO BOTH EYES THREE TIMES DAILY FOR 5 DAYS 5 mL 3 11:34 AM CDT 10/27/19 23 Active mirtazapine (REMERON) 7.5 mg tablet Take 1 Tablet (7.5 mg) by mouth daily at bedtime. 30 Tablet 1 3 7:37 PM CDT 12/05/19 23 Active moxifloxacin (VIGAMOX) 0.5 % solution Instill 1 drop into left eye every 8 hours for 7 days. 3 mL 1 3 10:32 AM CDT 12/30/19 23 Active methylPREDNISo lone (MEDROL DOSPACK) 4 mg Tablets, Dose Pack TAKE DIRECTED ON PACKAGE. 21 Tablet 1 4 3:27 PM CDT 11/04/19 24 Active clobetasoL (TEMOVATE) 0.05 % Cream APPLY A THIN LAYER TO THE AFFECTED AREA TWICE DAILY DIRECTED. 60 Gram 1 4 3:27 PM CDT 11/04/19 24 Active levothyroxine 125 mcg tablet Take 1 Tablet (125 mcg) by mouth daily. 90 Tablet 3 05/12/19 25 Active levothyroxine 125 mcg tablet Take 1/2 tablet by mouth daily 15 Tablet 5 2:09 PM BAKING ASSISTANT 04/25/19 25 025 Discontinued Social History Tobacco Use Types Packs/Day Years Used Date Smoking Tobacco: Never Assessed Sex and Gender Information Value Date Recorded Sex Assigned at Not on file Legal Sex Male 3:27 PM CDT Gender Identity Not on file Sexual Orientation Not on file Plan of Treatment Health Maintenance Due Date Last Done Comments HPV VACCINES (1 - Male 3-dos e series) 08/05/2015 DTAP/TDAP/TD VACCINES (1 - Tdap) 08/05/2019 HEPATITIS B VACCINES (1 of 3 - 19+ 3-dose series) 08/05/2019 INFLUENZA VACCINE (#1) 2023 PNEUMOCOCCAL VACCINE 0-49 YEARS Aged Out No longer eligible based on patient's age to complete this topic Insurance RX [employer] (INTERNAL) [facility] [employer] 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
--- OUTSIDE RECORDS SUMMARY | 2024-05-11 11:15 | XMS_ITS | Referral Summary ---
Author Organization [facility] Address [address] [place] [address] Care Team Providers Care Bellman Name Role Phone Janie Ward MD Primary Care Provider [phone] Source Comments [facility],non-owned Affiliates and Associated Physician Practices is amultiple site organization consisting of ambulatory clinics and hospital sitesin [place], [place], [place] and [place]. This disclosure is being madepursuant to the Care Everywhere program and may not contain all information available regarding this patient. Last updated 17.[facility] Allergies Active Allergy Reactions Criticality Noted Date [...] adenopathy Assessment & Plan (02/17/2017 1:59 PM ARCHIVIST POLITICAL HISTORY): Fatigue x 3 months with abdominal discomfort [...] year. Assessment & Plan (02/08/2018 5:16 PM ARCHIVIST POLITICAL HISTORY): Well managed; ceased linear growth/completed pubertal maturation [...] treatment). Assessment & Plan (02/17/2017 1:56 PM ARCHIVIST POLITICAL HISTORY): Acquired autoimmune hypothyroidism; perhaps a bit overtreated. 1. L-thyroxine (0.137 mg tablet) 1 tablet daily, except 0.5 tablet on Sat & Sun. 2. Return appointment in six months. Assessment & Plan (09/30/2016 9:51 AM CDT): Slightly undertreated. 1. L-thyroxine 0.137 mg daily 2. Return appointment in six months. Assessment & Plan (04/15/2016 7:24 AM ARCHIVIST POLITICAL HISTORY): Euthyroid. 1. L-thyroxine 0.125 mg daily. 2. Return appointment in six months. Assessment & Plan (10/02/2015 10:01 AM CDT): Euthyroid. 1. L-thyroxine 0.125 mg daily. 2. Return appointment in six months. 3. I reviewed my impression and recommendations with father at the time of the office visit and he was in agreement. Assessment & Plan (02/26/2015 12:48 PM ARCHIVIST POLITICAL HISTORY): Under-treated secondary to missed medication doses. 1. L-thyroxine 0.1 mg daily. 2. Obtain serum TSH and basic metabolic panel in two weeks after return from vacation. 3. Return appointment in six months. Assessment & Plan (09/05/2014 3:38 PM CDT): Euthyroid. 1. L-thyroxine 0.1 mg daily. 2. Return appointment in six months. Assessment & Plan (02/28/2014 1:28 PM ARCHIVIST POLITICAL HISTORY): Acquired primary hypothyroidism; well-treated. 1. Orders Placed This Encounter Procedures BASIC METABOLIC PANEL (CALCIUM TOTAL) T4 TOTAL TSH 2. Obtain serum biochemistries at [facility] before next office appointment and fax results to Dr. Carlton Webster at [phone] (prescription given). 3. Outpatient Prescriptions Marked as Taking for the 02/27/14 encounter (Hospital Encounter) with Carlton Webster MD Medication Sig levothyroxine (SYNTHROID) 100 MCG tablet Take 1 Tab by mouth daily before breakfast. 4. I will contact Matt Ruiz's father by telephone (number: [phone] or [phone]) with the test results after I have received them and make the necessary medication dose adjustments or any additional recommendations. 5. See website: [email or web address].org for patient information handouts - Hypothyroidism 6. Return appointment in 6 month(s). 7. I reviewed my provisional impressions and recommendations with father and he was in agreement. Social History Tobacco Use Types Packs/Day Years [...] CDT Oxygen Saturation 99% 05/03/2010 9:38 AM ARCHIVIST POLITICAL HISTORY Inhaled Oxygen Concentration - - Weight 65.6 kg (144 lb 10 oz) 09/19/2019 8:56 AM CDT Height 177.6 cm (5' 9.92 ) 09/19/2019 8:56 AM CD T Body Mass Index 20.8 09/19/2019 8:56 AM CDT Plan of Treatment Not on file Care Teams Bellman Relationship Specialty Start Date End Date Janie Ward MD [address] [place] [address] PCP - General 05/03/10
[2024-05-11 13:01] LABS: Alanine Aminotransferase 19 U/L (6-50); Albumin Level 4.7 g/dL (3.5-5.1); Alkaline Phosphatase 42 U/L (38-126); Anion Gap 10 mmol/L (4-12); Aspartate Amino Transferase 37 U/L (17-59); Basophils Percent Auto 0.6 % (0.2-1.2); Blood Urea Nitrogen 11 mg/dL (9-20); Calcium 9.6 mg/dL (8.4-10.2); Carbon Dioxide 29 mmol/L (22-30); Chloride 102 mmol/L (98-107); Eosinophils Percent Auto 1.2 % (0-4.4); Estimated Glomerular Filt Rate > 60; Glucose 88 mg/dL (65-110); Hematocrit 42.6 % (42.0-52.0); Hemoglobin 14.4 g/dL (14.0-18.0); Immature Granulocyte Absolute 0.01 K/mm3 (0.00-0.031); Immature Granulocyte Percent A 0.3 % (0-0.5); Lymphocytes Absolute Auto 1.47 K/mm3 (0.9-3.2); Lymphocytes Percent Auto 43.6 % (18.3-44.2); Mean Corpuscular HGB Conc 33.8 g/dl (32-36); Mean Corpuscular Hemoglobin 30.5 pg (26-34); Mean Corpuscular Volume 90.3 fl (80-100); Monocytes Absolute Auto 0.4 K/mm3 (0.1-0.6); Monocytes Percent Auto 11.6 % (2.6-8.5); Neutrophils Absolute Auto 1.4 K/mm3 (1.3-6.7); Neutrophils Percent Auto 42.7 % (45.5-73.1); Platelet Count Result 281 k/mm3 (150-375); Potassium 4.4 mmol/L (3.4-5.0); Red Blood Count 4.72 M/mm3 (4.6-6.20); Red Cell Distribution Width 12.5 % (11.5-14.5); Sodium 141 mmol/L (137-145); White Blood Count 3.4 K/mm3 (4.5-10.0)
== END 2024-05-11 10:11 | disposition home or self-care (01) ==
LOC: ANHGOSHLAB 10:11
PROVIDERS: PCP Internal Medicine; Visit Provider Nurse Practitioner
DX: E07.9 Disorder of thyroid, unspecified (principal); Z13.228 Encounter for screening for other metabolic disorders
CPT/HCPCS: 36415; 80053; 84443; 85025